=== PATIENT | male | born 1990 ===

== ENCOUNTER 2016-10-12 12:45 | Emergency (ER) | payer BC ==
[~2016-10-12] VITALS: Ht 172.7 cm; Wt 75.0 kg
[2016-10-12] MEDS ORDERED: HYDROCODONE/ACETAMINOPHEN 5-325 MG TABLET PO ONE (14:15)
[2016-10-12 15:27] VITALS: BP 119/72
== END 2016-10-12 15:33 | disposition home or self-care (01) ==
LOC: EMS 12:49
DX: S52.502A Unspecified fracture of the lower end of left radius, initial encounter for closed fracture (principal); S52.602A Unspecified fracture of lower end of left ulna, initial encounter for closed fracture; W19.XXXA Unspecified fall, initial encounter; Y93.79 Activity, other specified sports and athletics; Y92.89 Other specified places as the place of occurrence of the external cause; Y99.8 Other external cause status
CPT/HCPCS: 99284